=== PATIENT | male | born 1995 | race Two or more races ===

== ENCOUNTER 2020-12-03 08:57 | Emergency (ER) | payer OTHER ==
[~2020-12-03] VITALS: Ht 175.3 cm; Wt 81.7 kg
[2020-12-03] MEDS ORDERED: HYDPAM25 PO (09:52)
[2020-12-03] MEDS ORDERED: TRIA15CR3 TOP (09:52)
== END 2020-12-03 10:45 | disposition home or self-care (01) ==
LOC: ER 08:57
DX: L23.7 Allergic contact dermatitis due to plants, except food (principal)
CPT/HCPCS: 96372; 99282-25; J1100